=== PATIENT | female | born 1935 | race Caucasian/White ===

== ENCOUNTER 2017-10-29 13:52 | Day surgery (SDC) | payer OTHER ==
[~2017-10-29] VITALS: Ht 152.4 cm; Wt 72.0 kg
[~2017-10-29 13:52] MED LIST: ALBU90OI; ALBU90OI INH; ASCO250CH; ASCO250CH PO; ASCO500 PO; ASPI81CH PO; BIOTIN PO; BIOTIN1 MG PO; BIOTIN5000 MCG PO; Biotin300 MCG; CEPH500 PO; CHOL10002; CHOL10002 PO; CLOP75 PO; CLOT1TC TOP; CRUTCH3 MISC; CYAN1000 PO; CYAN500 SL; CYCL10 PO; DIGO.25 PO; DONE5 PO; Desyrel50 MG PO; EPOE4000I SC; FERR325 PO; FURO40 PO; FURO80 PO; Ferrous Sulfat325 M2 PO; Ferrous Sulfate PO; GABA100 PO; GABA300 PO; GLIM2 PO; GLIP2.5ER; HUMALOG KW200 UNIT/1 SC; HYDACE5 PO; HYDMOR2 PO; Humalog100 UNIT/3 SQ; INSLI100I SC; INSULANI SC; INSULANPEN SC; Keflex500 MG PO; LEVSOD125 PO; LEVSOD150 PO; LEVSOD50; LISI5 PO; LOSA25; LOSA25 PO; LOSHYD100 PO; METCAR500 PO; METF850; METF850 PO; METFORMIN; METO100ER PO; METO2.5 PO; METO50ER PO; METPRE4DP PO; Micro-K10 MEQ PO; NAC600 MG; NEBI10 PO; Norco 5-325 Ta1 EACH PO; POTA10T; POTA10T PO; PRAM.125; PRAM.125 PO; PRAM.5 PO; Pyridium100 MG PO; ROPI.25 PO; ROPI1; SULTRIDS PO; TOUJEO SOL300 UNIT/1 SC; VITAMIN C PO; Vitamin C PO; Vitamin C1000 M1 PO; WARF2 PO; Zofran Odt4 MG SL; [UNRECOGNIZED DRUG - OTHER]
== END 2017-10-29 15:55 | disposition home or self-care (01) ==
LOC: ORSCSDS 13:52
PROVIDERS: Internal Medicine Gastroenterology
PROC: 0DBH8ZX Excision of Cecum, Via Natural or Artificial Opening Endoscopic, Diagnostic (ICD-10-PCS; principal; 2017-10-29 15:00)
PROC: 0DBM8ZX Excision of Descending Colon, Via Natural or Artificial Opening Endoscopic, Diagnostic (ICD-10-PCS; principal; 2017-10-29 15:00)
PROC: 0DBP8ZX Excision of Rectum, Via Natural or Artificial Opening Endoscopic, Diagnostic (ICD-10-PCS; principal; 2017-10-29 15:00)
DX: Z86.010 Personal history of colon polyps (principal); D12.4 Benign neoplasm of descending colon; D12.0 Benign neoplasm of cecum; K62.1 Rectal polyp; K57.30 Diverticulosis of large intestine without perforation or abscess without bleeding; K64.8 Other hemorrhoids; K64.4 Residual hemorrhoidal skin tags; E11.9 Type 2 diabetes mellitus without complications; I10 Essential (primary) hypertension; E78.5 Hyperlipidemia, unspecified; I48.2 Chronic atrial fibrillation; Z79.01 Long term (current) use of anticoagulants; Z79.4 Long term (current) use of insulin; Z79.899 Other long term (current) drug therapy
CPT/HCPCS: 82947; 88305; J2250; J7120

== ENCOUNTER 2018-11-06 19:49 | Emergency (ER) | payer OTHER ==
[~2018-11-06] VITALS: Ht 152.4 cm; Wt 74.8 kg
[~2018-11-06 19:49] MED LIST changes: +BACL10 PO; -INSLI100I SC; +LEVSOD137 PO; +NOVOLOG FL100 UNIT/1 SC; -Vitamin C1000 M1 PO
[2018-11-07] MEDS ORDERED: ELIQUIS2.5 MG PO (14:00)
[2018-11-07] MEDS ORDERED: TRULICITY0.75 MG/0. SC (14:06)
== END 2018-11-06 21:26 | disposition home or self-care (01) ==
LOC: ER 19:49
DX: S00.03XA Contusion of scalp, initial encounter (principal); W01.10XA Fall on same level from slipping, tripping and stumbling with subsequent striking against unspecified object, initial encounter; E11.9 Type 2 diabetes mellitus without complications; I48.91 Unspecified atrial fibrillation; Z87.891 Personal history of nicotine dependence; Z79.899 Other long term (current) drug therapy; Z79.01 Long term (current) use of anticoagulants; Z79.4 Long term (current) use of insulin
CPT/HCPCS: 70450; 99284-25